=== PATIENT | male | born 1950 | race African-American/Black ===

== ENCOUNTER 2021-03-13 18:05 | Emergency (ER) | payer OTHER ==
[2021-03-13 18:57] LABS: EOSINOPHIL 5.9 % (0-7); HGB 13.6 g/dl (13.2-18.0); LYMPHOCYTE 38.4 % (15-48); MCH 35.9 pg (25.0-31.0); MCHC 34.9 g/dL (32.0-36.0); MCV 102.9 fL (78.0-100.0); MONOCYTE 9.3 % (0-12); MPV 10.5 fL (6.0-9.5); NRBC 0; PLT 275 K/uL (150-400); RBC 3.79 M/uL (4.70-6.00); RDW 12.2 % (11.5-14.0); WBC 8.1 K/uL (4.0-10.5)
[2021-03-13 19:06] LABS: INR 0.99 (0.9-1.2); PROTHROMBIN TIME 12.5 SECONDS (11.8-13.4); PTT 25.1 SECONDS (24.4-34.7)
[2021-03-13 19:23] LABS: ALBUMIN 3.5 g/dL (3.4-5.0); BILIRUBIN - TOTAL 0.3 mg/dL (0.2-1.0); BUN/CREAT RATIO (CALC) 10.7 RATIO; CREATININE 0.75 mg/dL (0.67-1.17); GLOBULIN (CALCULATION) 3.6 g/dL; POTASSIUM 3.6 mmol/L (3.5-5.1); TOTAL PROTEIN 7.1 g/dL (6.4-8.2)
== END 2021-03-13 18:59 | disposition other institution (70) ==
LOC: FER 18:05
PROVIDERS: Emergency Medicine
DX: S05.32XA Ocular laceration without prolapse or loss of intraocular tissue, left eye, initial encounter (principal); W39.XXXA Discharge of firework, initial encounter; Y92.009 Unspecified place in unspecified non-institutional (private) residence as the place of occurrence of the external cause
CPT/HCPCS: 36415; 70480; 80053; 85025; 85610; 85730; J0690; J1170; J2405